=== PATIENT | male | born 1955 | race Caucasian/White ===

== ENCOUNTER 2017-01-18 07:30 | Outpatient (CLI) | payer MEDICARE ==
[~2017-01-18] VITALS: Ht 185.4 cm; Wt 109.1 kg
--- NOTE | ~2017-01-18 | HEMODYNAMI ---
PATIENT:ABRAHAN CARMONA MEDICAL RECORD: [id number] : 55 LOCATION:[facility] ADMISSION DATE: 01/18/17 Generatedon:01/18/201711:08 Patient name: ABRAHAN CARMONA Patient #: [id number] SSN: : 1955 Date of study: 01/18/2017 Page: Of Hemodynamic Procedure Report Patient Data Patient Demographics Procedure consent was obtained First Name: ABRAHAN Gender: Male Last Name: KRISTINE : 1955 Patient #: [id number] Age: 61 year(s) Race: Additional ID: [id number] Contact details Address: [facility] [address] State: [place] City: [place] Zip code: [address] Past Medical History Performed procedures and imaging results Date Procedure Procedure Results Comments Stress testing with Positive->Low risk SPECT MPI Allergies: No known allergies Admission Admission Data Admission Date: 01/18/2017 Admission Time: 7:30 Admit Source: Other Height (in.): 72 BSA: 2.3 (m2) Height (cm.): 182.88 BMI: 32.55 (kg/m2) Weight (lbs.): 240 Weight (kg.): 108.86 Lab Results Lab Result Date: 01/18/2017 Lab Result Time: 0:00 Biochemistry Name Units Result Min Max BUN mg/dl 6 -*(----)-- 7 18 Creatinine mg/dl 1 --(--*-)-- 0.6 1.3 CBC Name Units Result Min Max Hemoglobin g/dl 15.1 --(-*--)-- 13.5 17.5 Procedure Procedure Types Cath Procedure Diagnostic Procedure [facility] w/Coronaries PCI Procedure Coronary Stent Initial Miscellaneous Procedures Moderate Sedation up to 15 minutes Procedure Description Procedure Date Procedure Date: 01/18/2017 Procedure Start Time: 10:49 Procedure End Time: 11:07 Procedure Staff Name Function Ervin Rashid MD Performing Physician Pattie Beth RN Nurse Celestino Ingram RT Monitor Elia Gaspar RT Scrub Procedure Data Cath Procedure Fluoroscopy Diagnostic fluoroscopy Total fluoroscopy Time: 2.6 time: 2.6 min min Diagnostic fluoroscopy Total fluoroscopy dose: dose: 292.55 mGy 292.55 mGy Contrast Material Contrast Material Type Amount (ml) Isovue 300 84 Entry Location Entry Primary Successful Side Size Upsize Upsize Entry Closure Rodríguez ccessful Closure Location (Fr) 1 (Fr) 2 (Fr) Remarks Device Remarks Radial Right 6 Fr Mechanical artery Short Compression Estimated blood loss: 10 ml Diagnostic catheters Device Type Used For End Catheter Placement Terumo 5Fr Elkridge 110cm Procedure catheter Procedure Medications Medication Administration Route Dosage Oxygen NC 2 l/min Heparin Flush Bag added to field 2 bags (1000units/500ml NS) Lidocaine 2% added to field 20 Radial Cocktail added to field 1 syringe (Verapomil 2mg/Nitro 400mcg/Heparin 1500units) Versed I.V. 1 mg Fentanyl I.V. 50 mcg Versed I.V. 1 mg Fentanyl I.V. 50 mcg Radial Cocktail I.A. 1 syringe (Verapomil 2mg/Nitro 400mcg/Heparin 1500units) Versed I.V. 1 mg Fentanyl I.V. 50 mcg Heparin Bolus I.V. 4000 units Integrilin (Bolus I.V. 9.5 ml 2mg/ml) Versed I.V. 1 mg Fentanyl I.V. 50 mcg Fentanyl I.V. 50 mcg Plavix P.O. 600 mg Hemodynamics Rest BSA: 2.3 (m2) HGB: 15.1 (g/dl) O2 Consumption: Estimated: 267.76 (ml/min) O2 Con sumption indexed: Estimated:116.42 (ml/min/m) Heart Rate: 68 (bpm) Pressure Samples Time Site Value (mmHg) Purpose Heart Use Rate(bpm) 10:51 LV 97/51,15 Snapshot 88 10:51 LV 116/45,60 Snapshot 87 Snapshots Pre Cath Intra NCS Post Cath Vital Signs Time Heart Resp SPO2 NIBP (mmHg) Rhythm Pain Sedation Rate (ipm) (%) Status Level (bpm) 9:45:34 65 16 100 162/103(140) NSR 0 (11) 10(A) , No pain 9:50:04 67 16 100 154/95(133) NSR 0 (11) 10(A) , No pain 9:54:32 72 16 98 143/92(121) NSR 0 (11) 10(A) , No pain 9:58:54 72 18 97 147/96(114) NSR 0 (11) 10(A) , No pain 10:03:21 75 18 97 143/89(125) NSR 0 (11) 10(A) , No pain 10:07:45 76 18 96 143/93(116) NSR 0 (11) 10(A) , No pain 10:12:07 83 18 95 144/100(118) NSR 0 (11) 10(A) , No pain 10:16:31 77 16 95 144/94(108) NSR 0 (11) 10(A) , No pain 10:20:56 79 16 95 142/91(116) NSR 0 (11) 10(A) , No pain 10:25:22 83 16 97 145/89(121) NSR 0 (11) 10(A) , No pain 10:29:44 80 16 97 142/92(120) NSR 0 (11) 10(A) , No pain 10:34:04 80 16 96 144/91(115) NSR 0 (11) 10(A) , No pain 10:38:26 84 16 96 149/97(132) NSR 0 (11) 10(A) , No pain 10:42:55 82 16 96 140/90(108) NSR 0 (11) 10(A) , No pain 10:47:19 81 19 96 148/89(116) NSR 0 (11) 10(A) , No pain 10:51:49 85 17 96 135/79(96) NSR 0 (11) 10(A) , No pain 10:56:12 84 16 96 137/82(107) NSR 0 (11) 10(A) , No pain 11:00:38 80 18 95 141/83(105) NSR 0 (11) 10(A) , No pain 11:02:57 77 19 96 138/81(115) NSR 0 (11) 10(A) , No pain 11:07:21 74 10 97 156/89(115) NSR 0 (11) 10(A) , No pain Medications Time Medication Route Dose Verified Delivered Reason Note s Effectiveness by by 9:46:42 Oxygen NC 2 l/min Ervin Pattie Per physician Gay Beth RN 9:46:57 Heparin Flush added 2 bags Ervin Mueller used for Bag to Gay Rashid MD procedure (1000units/500ml field NS) 9:47:04 Lidocaine 2% added 20ml Ervin Ervin used for to vial Gay Rashid MD procedure field 9:47:12 Radial Cocktail added 1 Ervin Ervin used for (Verapomil to syringe Gay Rashid MD procedure 2mg/Nitro field 400mcg/Heparin 1500units) 10:48:02 Versed I.V. 1 mg Ervin Pattie for sedation Gay Beth RN 10:48:08 Fentanyl I.V. 50 mcg Ervin Pattie for sedation Gay Beth RN 10:50:06 Versed I.V. 1 mg Ervin Pattie for sedation Gay Beth RN 10:50:10 Fentanyl I.V. 50 mcg Ervin Pattie for sedation Gay Beth RN 10:50:56 Radial Cocktail I.A. 1 Ervin Ervin for (Verapomil syringe Gay Rashid MD vasodilation 2mg/Nitro 400mcg/Heparin 1500units) 10:52:08 Versed I.V. 1 mg Ervin Pattie for sedation Gay Beth RN 10:52:17 Fentanyl I.V. 50 mcg Ervin Pattie for sedation Gay Beth RN 10:54:28 Versed I.V. 1 mg Ervin Pattie for sedation Gay Beth RN 10:54:37 Fentanyl I.V. 50 mcg Ervin Pattie for sedation Gay Beth RN 10:56:10 Heparin Bolus I.V. 4000 Ervin Pattie for dose units Gay Beth RN anticoagulation verified with dr rashid 10:56:37 Fentanyl I.V. 50 mcg Ervin Pattie for sedation Gay Beth RN 10:58:47 Integrilin I.V. 9.5 ml Ervin Pattie for wast ed (Bolus 2mg/ml) Gay Beth RN antiplatelet 0.5 mL therapy 11:01:24 Plavix P.O. 600 mg Ervin Pattie for Gay Smithmore RN antiplatelet therapy Procedure Log Time Note 9:10:45 Celestino Juan Jose RT(R) (CV) sent for patient. Start room use. 9:35:03 Time tracking: Regular hours 9:35:07 Plan of Care:Hemodynamics will remain stable., Cardiac rhythm will remain stable., Comfort level will be maintained., Respiratory function will remain adequate., Patient/ family verbilizes understanding of procedure., Procedure tolerated without complication., Recovers from procedure without complications.. 9:35:13 Patient received from Pre/Post Procedure Room to CCL 3 Alert and oriented. Tansferred to table in Supine position. 9:35:15 Warm blankets applied, and ivette hugger turned on for patient comfort. 9:35:15 Correct patient and procedure confirmed by team. 9:35:16 Signed procedure consent form obtained from patient. 9:35:17 ECG and BP/O2 sat monitors applied to patient. 9:44:07 Vital chart was started 9:46:42 Oxygen 2 l/min NC was administered by Pattie Beth RN; Per physician; 9:46:57 Heparin Flush Bag (1000units/500ml NS) 2 bags added to field was administered by Ervin Rashid MD; used for procedure; 9:47:04 Lidocaine 2% 20ml vial added to field was administered by Ervin Rashid MD; used for procedure; 9:47:12 Radial Cocktail (Verapomil 2mg/Nitro 400mcg/Heparin 1500units) 1 syringe added to field was administered by Ervin Rashid MD; used for procedure; 9:50:56 Baseline sample Acquired. 9:51:01 Rhythm: sinus rhythm 9:51:03 Full Disclosure recording started 9:52:07 H&P Date Dictated: 01/18/2017 New H&P dictated by physician.. 9:52:09 Pre-procedure instructions explained to patient. 9:52:13 Pre-op teaching completed and patient verbalized understanding. 9:52:15 Family in waiting room. 9:52:18 Patient NPO since Midnight. 9:52:25 Patient allergic to No known allergies 9:52:28 Is the patient allergic to Iodine/contrast media? No. 9:52:31 Is patient on blood thinner?Yes 9:52:35 ACC The patient was administered the following blood thiners within the last 24 hours: ACCPlavix 9:52:37 Patient diabetic? No. 9:52:39 If diabetic: On Metformin? No 9:52:42 ----Pre-sedation anethsthesia assessment.---- 9:52:45 Previous problem with sedation/anesthesia? No ? 9:52:47 Snore? Yes 9:52:49 Sleep apnea? Yes 9:53:01 Deviated septum? No 9:53:06 Opens mouth fully? Yes 9:53:07 Sticks out tongue? Yes 9:53:22 Airway obstruction? No ? 9:53:25 Dentures? No ? 9:53:32 Modified Jed's test Ulnar > 7 seconds. 9:53:36 Patient pain scale 0/10 ?. 9:53:56 pillow placed under knees for back support 9:54:06 IV patent on arrival in left forearm with 0.9% NaCl at O. 9:55:22 Right Radial & Right Groin area was prepped with chlora-prep and draped in sterile fashion 9:55:31 Alarms reviewed by R. N. 9:55:42 Sharps counted by scrub and verified by R.N. 9:56:03 Use device set Radial Dx 9:56:13 Acist Syringe opened to sterile field. 9:56:14 Medline Cath Pack opened to sterile field. 9:56:14 Bag Decanter opened to sterile field. 9:56:15 Terumo 6Fr Slender Glidesheath opened to sterile field. 9:56:16 St Ortega 260cm J .035 wire opened to sterile field. 9:56:27 Acist Hand Control opened to sterile field. 9:56:28 Acist Manifold opened to sterile field. 9:56:28 Tegaderm 4 x 4 opened to sterile field. 9:56:29 MBrace Wrist Support opened to sterile field. 9:58:09 Lab Result : BUN 6 mg/dl 9:58:09 Lab Result : Creatinine 1 mg/dl 9:58:09 Lab Result : Hemoglobin 15.1 g/dl 9:59:24 DR. RASHID IN ROOM 2 10:07:55 Zero performed for pressure channel P1 10:09:06 Admit Source: Other 10:09:22 Patient Height : 182.88 cm 10:09:30 Patient Weight : 108.86 kg 10:47:14 Physician arrived 10:47:16 --------ALL STOP TIME OUT------ 10:47:17 Final Timeout: patient, procedure, and site verified with staff and physician. All members of the team are in agreement. 10:47:20 Right Radial & Right Groin site verified by team. 10:47:23 Physical assessment completed. ASA score P 2 - A patient with mild systemic disease as per Ervin Rashid MD. 10:47:28 Sedation plan: IV Moderate Sedation Versed, Fentanyl 10:48:02 Versed 1 mg I.V. was administered by Pattie Beth RN; for sedation; 10:48:08 Fentanyl 50 mcg I.V. was administered by Pattie Beth RN; for sedation; 10:48:20 Procedure started. 10:49:36 Local anesthetic to right radial artery with Lidocaine 2% by Ervin Rashid MD.INITIAL ACCESS ONLY 10:50:06 Versed 1 mg I.V. was administered by Pattie Beth RN; for sedation; 10:50:10 Fentanyl 50 mcg I.V. was administered by Pattie Beth RN; for sedation; 10:50:14 A 6 Fr Short sheath was inserted into the Right Radial artery 10:50:54 A [employer] 5Fr Elkridge 110cm catheter was advanced over the wire and used for Procedure. 10:50:56 Radial Cocktail (Verapomil 2mg/Nitro 400mcg/Heparin 1500units) 1 syringe I.A. was administered by Ervin Rashid MD; for vasodilation; 10:51:52 LV hemodynamics recorded. 10:51:55 LV gram done using SHEPPARD 10:52:03 LV Function : Normal 10:52:08 Versed 1 mg I.V. was administered by Pattie Beth RN; for sedation; 10:52:09 EF : 55 % 10:52:17 Fentanyl 50 mcg I.V. was administered by Pattie Beth RN; for sedation; 10:52:32 LCA angiography performed. 10:53:57 RCA angiography performed. 10:54:11 Catheter removed. 10:54:12 Proceeding to intervention. 10:54:28 Versed 1 mg I.V. was administered by Pattie Rice RN; for sedation; 10:54:35 Merit BasixCompak Inflation Kit opened to sterile field. 10:54:37 Fentanyl 50 mcg I.V. was administered by Pattie Beth RN; for sedation; 10:54:38 Barbour Whisper J 300cm 0.014 guide wire opened to sterile field. 10:55:06 Cordis 6FR XBLAD 3.5 guide catheter opened to sterile field. 10:56:06 6 Fr xblad 3.5 guide catheter was inserted over the wire 10:56:10 Heparin Bolus 4000 units I.V. was administered by Pattie Beth RN; for anticoagulation; dose verified with dr rashid 10:56:37 Fentanyl 50 mcg I.V. was administered by Pattie Beth RN; for sedation; 10:57:56 whisper wire advanced. 10:58:02 Wire advanced across lesion. 10:58:38 Inflation Number: 1 A Hashabletronic Integrity 3.0 X 12 stent was prepped and advanced across the 2nd Ob Sierra. The stent was deployed at 13 NOVA for 0:10 (min:sec). 10:58:47 Integrilin (Bolus 2mg/ml) 9.5 ml I.V. was administered by Pattie Beth RN; for antiplatelet therapy; wasted 0.5 mL 10:58:52 ACC Post-intervention SINCERE Flow is 3. 10:58:53 Stent catheter was removed intact over wire. 10:58:55 Wire removed. 10:58:55 Guide catheter removed. 11:01:24 Plavix 600 mg P.O. was administered by Pattie Beth RN; for antiplatelet therapy; 11:01:29 Sheath removed intact; hemostasis achieved with Mechanical Compression to the Right Radial artery. 11:01:34 Procedure ended.(Physican Out) 11:01:49 Diagnostic Cath Status : Elective 11:02:00 Procedure type changed to Cath procedure, Diagnostic procedure, LHC, LHC w/Coronaries, PCI procedure, Coronary Stent Initial, Miscellaneous Procedures, Moderate Sedation up to 15 minutes 11:02:11 Fluoroscopy time 02.60 minutes. 11:02:39 Flurop Dose total: 292.55 11:02:39 Fluoroscopy dose: 292.55 mGy 11:02:45 Contrast amount:Isovue 300 84ml. 11:02:48 Sharps counted by scrub and verified by R.N. 11:03:46 Medtronic traclet applied to right radial for hemostasis 13cc of air. 11:03:52 Insertion/operative site no bleeding no hematoma. 11:04:05 Post right radial artery:stable 11:04:12 Post-procedure physical assessment completed. ASA score P 2 - A patient with mild systemic disease as per Ervin Rashid MD. 11:04:16 Post procedure rhythm: sinus rhythm 11:06:24 Estimated blood loss: 10 ml 11:06:26 Post procedure instruction explained to patient.Patient verbalizes understanding. 11:06:27 Patient needs reinforcement of post procedure teaching. 11:06:28 Procedure and supply charges have been captured, reviewed, submitted and are correct. 11:07:49 Vital chart was stopped 11:07:50 See physician's report for complete and final results. 11:07:52 Report given to Pre/Post Procedure Room. 11:07:56 Patient transfered to Pre/Post Procedure Room with Stretcher. 11:07:58 Procedure ended. 11:07:58 Full Disclosure recording stopped 11:08:06 ACC-PCI Only Patient was given prescriptions, or instructed by Ervin Rashid MD to start/continue the following medications upon discharge: Aspirin, Plavix 11:08:08 End room use (Document Last) Intervention Summary Intervention Notes Time ActionType Lesion and Equipment Action# Pressure Duration Attributes Used 10:58:[address] Place stent 2nd Ob Sierra Medtronic 1 13 00:10 Integrity 3.0 X 12 stent Device Usage Item Name Manufacture Quantity Catalog Hospital Part Current Minimal Lot# / Number Charge Number Stock Stock Serial# Code Acist Acist 1 01118 582420 029297 294480 20 Syringe Medical Systems Inc Medline Cardinal 1 [id number] 379941 97528 197104 5 Cath Pack Health Bag Microtek 1 2001S 102845 00556 485953 5 Decanter Medical Inc. Terumo 6Fr Terumo 1 [id number] 571615 971439 976827 [address] St Ortega 1 603729 757996 870707 433747 30 260cm J .035 wire Acist Hand Acist 1 95039 711268 774410 017934 5 Control Medical Systems Inc Acist Acist 1 55458 045663 983328 224882 5 Manifold Medical Systems Inc Tegaderm 4 3M 1 1626W 168887 021592 060095 5 x 4 MBrace Advanced 1 140-0250-00 556501 12624 593880 5 Wrist Vascular Support Dynamics Terumo 5Fr Terumo 1 59-8174 366901 458714 923564 5 Elkridge 110cm catheter Merit Merit 1 QF1500 666505 178678 887409 15 BasixCompak Medical Inflation Kit Barbour Barbour 1 [id number] 471154 396846 496294 5 Whisper J Vascular 300cm 0.014 guide wire Cordis 6FR Cardinal 1 [id number] 208650 535340 251358 10 XBLAD 3.5 Health guide catheter Medtronic Medtronic 1 [id number] 058980 176231 370092 6 [id number] Integrity 3.0 X 12 stent Signature Audit [place] Stage Time Signature Unsigned Intra-Procedure 01/18/2017 Celestino Ingram 11:08:40 AM RT(R) (CV) Signatures Monitor : Celestino Ingram RT Signature : Date : Time : [place] [id number] [place] [address]
[~2017-01-18 07:30] MED LIST: AMBIEN5 MG PO; BENICAR40 MG PO; KLONOPIN0.5 MG PO; LEVAQUIN500 MG PO; MILK OF MAGNESI30 ML; MUCINEX600 MG; PERCOCET 10/3251 TA1 PO; SOMA350 MG PO
[2017-01-18] MEDS ORDERED: NEURONTIN600 MG PO (07:57)
[2017-01-18] MEDS ORDERED: LIPITOR20 MG PO (07:57)
[2017-01-18] MEDS ORDERED: ROXICODONE15 MG PO (07:57)
[2017-01-18] MEDS ORDERED: NORVASC5 MG PO (07:58)
[2017-01-18] MEDS ORDERED: OMEPRAZOLE40 MG PO (07:58)
[2017-01-18] MEDS ORDERED: HYDROCHLOROTHIA25 MG PO (07:58)
[2017-01-18] MEDS ORDERED: MAG-OX 400 MG400 MG PO (07:59)
[2017-01-18] MEDS ORDERED: DURAGESIC1 PATCH .1 TRANSDERM (08:00)
[2017-01-18 08:10] VITALS: BP 152/79; Ht 185.4 cm; Wt 109.1 kg
[2017-01-18 08:11] LABS: BASOPHILS 0.7 % (0-2); EOSINOPHILS 5.7 % (0-7); HEMATOCRIT 45.3 % (42.0-54.0); HEMOGLOBIN 15.1 g/dL (13.5-17.5); IMMATURE GRANULOCYTES 0.2 % (0-5); LYMPHOCYTES 35.1 % (15-50); MCHC 33.3 g/dL (31.0-37.0); MCV 99.1 fL (80.0-100.0); MEAN PLATELET VOLUME 9.9 fL (7.4-10.4); MONOCYTES 9.6 % (2-11); NEUTROPHILS 48.7 % (40-80); RBC 4.57 10x6/uL (4.20-6.10); RDW 13.7 % (11.5-14.5); WBC 4.6 10x3/uL (4.8-10.8)
[2017-01-18 08:12] LABS: PLATELET COUNT 181 10x3/uL (130-400)
[2017-01-18 08:25] LABS: CALC OSMOLALITY 276 mosm/kg (275-300); CALCIUM 8.4 mg/dL (8.5-10.1); CARBON DIOXIDE 30.6 mmol/L (21.0-32.0); CHLORIDE - SERUM 104 mmol/L (98-107); GLUCOSE 118 mg/dL (74-106); SODIUM 139 mmol/L (136-145); UREA NITROGEN 6 mg/dL (7-18); eGFR NON AFRICAN AMERICAN 81 mL/min (90-120)
--- NOTE | 2017-01-18 11:40 | NUR ---
RESTING QUIETLY. VSS. 2L NC, NO RESP DISTRESS NOTED. RIGHT WRIST TR BAND IN PLACE, NO BLEEDING OR HEMATOMA NOTED. NO C/O CHEST PAIN OR NAUSEA. INSTRUCTED PT NOT TO BEND OR FLEX RIGHT WRIST.
[2017-01-18] MEDS ORDERED: PLAVIX75 MG PO (11:53)
--- NOTE | 2017-01-18 12:10 | NUR ---
SANDWICH TRAY GIVEN. NO C/O NAUSEA OR CHEST PAIN. VSS. 2L NC, NO RESP DISTRESS NOTED. RIGHT WRIST TR BAND IN PLACE, NO BLEEDING OR HEMATOMA NOTED. AT BEDSIDE, CALL LIGHT WITHIN REACH.
--- NOTE | 2017-01-18 12:25 | NUR ---
2L NC, NO RESP DISTRESS NOTED. VSS. NO C/O CHEST PAIN OR NAUSEA. RIGHT WRIST TR BAND IN PLACE, NO BLEEDING OR HEMATOMA NOTED. WILL CONTINUE TO MONITOR.
--- NOTE | 2017-01-18 12:50 | NUR ---
RESTING IN BED WITH EYES CLOSED. 2L NC, NO RESP DISTRESS NOTED. VSS. NO C/O AT THIS TIME. RIGHT WRIST TR BAND IN PLACE, NO BLEEDING OR HEMATOMA NOTED. WILL CONTINUE TO MONITOR.
--- NOTE | 2017-01-18 13:20 | NUR ---
2L NC, NO RESP DISTRESS. RIGHT WRIST CDI, NO BLEEDING NOTED. NO C/O CHEST PAIN OR NAUSEA. CALL LIGHT WITHIN REACH.
--- NOTE | 2017-01-18 14:13 | NUR ---
2CC OF AIR REMOVED FROM TR BAND. NO BLEEDING NOTED.
--- NOTE | 2017-01-18 14:30 | NUR ---
3CC OF AIR REMOVED FROM TR BAND. NO BLEEDING NOTED.
--- NOTE | 2017-01-18 14:40 | NUR ---
2CC OF AIR REMOVED FROM TR BAND.
--- NOTE | 2017-01-18 14:52 | NUR ---
2CC OF AIR REMOVED FROM TR BAND. NO BLEEDING NOTED. LEFT FA PIV D/C'D WITH CATHTER INTACT, BAND AID TO SITE. UP TO BEDSIDE TO GET DRESSED.
--- NOTE | 2017-01-18 15:00 | NUR ---
REMAINING AIR REMOVED FROM TR BAND. DRESSING TO SITE. DISCHARGE INSTRUCTIONS GIVEN, VERBALIZED UNDERSTANDING.
--- NOTE | 2017-01-18 15:09 | NUR ---
TAKEN OUT VIA WHEELCHAIR BY CATH OUTCOMES ANALYST. LEFT FACILITY WITH AND ALL PERSONAL BELONGINGS.
--- NOTE | 2017-01-20 08:06 | HP ---
PATIENT: ABRAHAN CARMONA MEDICAL RECORD: [id number] ACCOUNT: [id number] LOCATION:[facility] : 55 ADMISSION DATE: 01/18/17 HISTORY AND PHYSICAL EXAMINATION DIAGNOSES: 1. Angina. 2. Abnormal nuclear stress test. 3. Hypertension. 4. Abdominal aortic aneurysm. HISTORY OF PRESENT ILLNESS: This is a gentleman, who has no previous cardiac history, but has a history of peripheral vascular disease, abdominal aortic aneurysm, who presents with chest pain. Nuclear stress testing was done. He shows a perfusion defect inferiorly, now brought for cardiac catheterization due to ongoing symptomatology. PHYSICAL EXAMINATION: GENERAL APPEARANCE: Well-nourished, well-developed, appears stated age. Level of distress, comfortable. PSYCHIATRIC: Mental status, alert, normal affect. Orientation, oriented to time, place and person. EYES: Lids and conjunctiva, noninjected. No discharge, no pallor. ENT: Lips, teeth, gums, normal dentition. Oropharynx, no cyanosis, no pallor. NECK: Carotid arteries, bilateral normal upstroke, no bruits, no thrills. JUGULAR VEINS: No jugular venous pressure or distention. CERVICAL LYMPH NODES: Nontender, nonenlarged. THYROID: Not enlarged. Nontender. No nodules. LUNGS: Respiratory effort, unlabored. CHEST: Normal curvature. No thoracic deformity. No chest wall tenderness. Percussion, resonant. Auscultation, clear. No wheezes, no rales, no rhonchi. CARDIOVASCULAR: Precordial exam, nondisplaced. No heaves or pericardial thrills. Rate and rhythm, regular. Heart sounds, normal S1, normal S2. No S3, no gallop, no rub. Systolic murmur, not heard. Diastolic murmur, not heard. EXTREMITIES: No cyanosis, no edema. Peripheral pulses, full and equal in all extremities, except as noted. No bruits appreciated. ABDOMEN: Soft, nondistended. Normal aorta. No bruit. Nontender. No masses. Liver, nontender, no hepatomegaly. Spleen, nontender, no splenomegaly. MUSCULOSKELETAL: No joint tenderness. No joint swelling. No erythema. NEUROLOGICAL: Normal gait, normal strength, normal tone. SKIN: Warm and dry. REVIEW OF SYSTEMS: The patient reports easy bruising but reports no swollen glands. The patient reports no fever, no night sweats, no significant weight gain, no significant weight loss. No significant exercise tolerance. The patient reports no dry eyes, no irritation, no vision change. Patient reports no difficulty hearing and no ear pain. Patient reports no frequent nose bleeds or nose and sinus problems. Patient reports on arm pain on exertion. No shortness of breath while lying down. No history of heart murmur. Patient reports no cough, no wheezing or coughing up blood. Patient reports no abdominal pain, no vomiting. Normal appetite. No diarrhea and not vomiting blood. No nausea and no constipation. Patient reports no incontinence. No difficulty urinating. No hematuria. No increased frequency. Patient reports no muscle aches. No weakness, no arthralgias, no back pain. No swelling of the extremities. Patient reports no abnormal mole, no jaundice, no rashes. Reports HISTORY AND PHYSICAL [id number] ABRAHAN CARMONA no loss of consciousness. No weakness and no numbness. No seizures, dizziness, or headaches. The patient reports no depression, no sleep disturbance, feeling safe in a relationship and no alcohol abuse. Patient reports on fatigue. Reports no runny nose or sinus pressure. No itching, no hives, and no frequent sneezing. OVERALL IMPRESSION: Anginal symptomatology with abnormal perfusion stress test. We will proceed with coronary angiography. Further care depends upon findings of the angiography. TRANSINT:[id number] Voice Confirmation ID: [id number] DOCUMENT ID: [id number] JESSICA DOOLEY MD at 0806 CC: [id number] DICTATION DATE: 01/18/17805 SPA CONSULTANT: 01/18/17 0820 DEP CLI 01/18/17 [place] [id number]
--- NOTE | 2017-01-20 08:06 | OP ---
PATIENT NAME: ABRAHAN CARMONA MEDICAL RECORD: [id number] :55 LOCATION:[facility] ADMISSION DATE: SURGEON: JESSICA DOOLEY MD DATE OF OPERATION: 01/18/2017 PROCEDURES: 1. PTCA stent left circumflex. 2. Left heart catheterization. 3. Selective coronary angiography. 4. Left ventriculogram. INDICATION: Angina and coronary artery disease. PROCEDURE: After informed consent was obtained and after detailed explanation of risks, benefits as well as alternative therapies, the patient elected to proceed with angiogram and angioplasty. The right radial area was prepped and draped in normal sterile fashion. Right radial artery was cannulated via modified Seldinger technique with placement of 6-Kosovan sheath. All catheters exchanged through this sheath. FINDINGS: Left ventriculogram was performed in standard 30-degree SHEPPARD view, reveals good cardiac wall motion throughout all segments. Overall ejection fraction estimated at 60%. SELECTIVE CORONARY ANGIOGRAPHY: 1. Left main is with no significant angiographic disease. 2. Left anterior descending has moderate irregularities, no flow-limiting stenosis. 3. The left circumflex is large, dominant. The terminal obtuse marginal, which correlates with a nuclear perfusion defect inferiorly has a 70% stenosis. 4. Right coronary is small and nondominant. PTCA STENT OF SECOND OBTUSE MARGINAL: The stent used was a 3.0 x 12 mm Integrity. Result was 0% residual stenosis. OVERALL IMPRESSION: Successful percutaneous transluminal coronary angioplasty stent of the left circumflex going from 70% initial stenosis to 0% residual. TRANSINT:[id number] Voice Confirmation ID: [id number] DOCUMENT ID: [id number] JESSICA DOOLEY MD at 0806 CC: [id number] DICTATION DATE: 01/18/17 1102 TOBACCO FLAVORER: 01/18/17 1228 DEP CLI 01/18/17 [place] [id number]
== END 2017-01-18 15:09 | disposition home or self-care (01) ==
LOC: D.CATH 07:30
PROVIDERS: Internal Medicine Interventional Cardiology
DX: I20.9 Angina pectoris, unspecified (principal); I10 Essential (primary) hypertension; I71.4 Abdominal aortic aneurysm, without rupture; R94.30 Abnormal result of cardiovascular function study, unspecified

== ENCOUNTER → 2017-07-08 13:27 | Outpatient (CLI) | payer MEDICARE ==
[2017-01-18 08:10] VITALS: BMI 31.7
[~2017-07-08 13:27] MED LIST changes: +DURAGESIC1 PATCH .1 TRANSDERM; +HYDROCHLOROTHIA25 MG PO; +LIPITOR20 MG PO; +MAG-OX 400 MG400 MG PO; +NEURONTIN600 MG PO; +NORVASC5 MG PO; +OMEPRAZOLE40 MG PO; +PLAVIX75 MG PO; +ROXICODONE15 MG PO
[2017-07-08 14:06] LABS: HEMOGLOBIN A1C 5.8 % (4.8-6.0)
== END | disposition home or self-care (01) ==
LOC: D.LAB 13:27
PROVIDERS: Family Medicine
DX: E11.9 Type 2 diabetes mellitus without complications (principal)

== ENCOUNTER → 2017-12-24 10:05 | Outpatient (CLI) | payer MEDICARE ==
[2017-01-18 08:10] VITALS: BMI 31.7
[2017-12-24 10:40] LABS: BASOPHILS 0.5 % (0-2); EOSINOPHILS 5.1 % (0-7); HEMATOCRIT 45.5 % (42.0-54.0); HEMOGLOBIN 16.1 g/dL (13.5-17.5); IMMATURE GRANULOCYTES 0.2 % (0-5); LYMPHOCYTES 37.5 % (15-50); MCH 35.4 pg (26.0-34.0); MCHC 35.4 g/dL (31.0-37.0); MEAN PLATELET VOLUME 10.1 fL (7.4-10.4); MONOCYTES 7.3 % (2-11); NEUTROPHILS 49.4 % (40-80); RBC 4.55 10x6/uL (4.20-6.10); RDW 12.9 % (11.5-14.5)
[2017-12-24 10:43] LABS: PLATELET COUNT 141 10x3/uL (130-400)
[2017-12-24 11:14] LABS: ALBUMIN 4.2 g/dL (3.4-5.0); ANION GAP 9.9 mmol/L (8-16); BILIRUBIN - TOTAL 0.71 mg/dL (0.2-1.3); CALCIUM 8.5 mg/dL (8.5-10.1); CARBON DIOXIDE 31.1 mmol/L (21.0-32.0); CHOL - HDL RATIO 3.1 ratio (2.3-4.9); CREATININE - SERUM 1.2 mg/dL (0.6-1.3); LDL-HDL RATIO 1.4 ratio (1.5-3.5); PROTEIN - SERUM 7.1 g/dL (6.4-8.2); THYROID STIMULATING HORMONE 0.52 uIU/mL (0.36-3.74)
== END | disposition home or self-care (01) ==
LOC: D.LAB 12-20 09:00
PROVIDERS: Family Medicine
DX: I10 Essential (primary) hypertension (principal); R73.9 Hyperglycemia, unspecified; E78.5 Hyperlipidemia, unspecified; E29.1 Testicular hypofunction

== ENCOUNTER 2018-03-01 10:50 | Emergency (ER) | payer BC, MEDICARE ==
[~2018-03-01] VITALS: Ht 185.4 cm; Wt 91.8 kg
[2018-03-01 10:52] VITALS: Ht 185.4 cm; Wt 91.8 kg
[2018-03-01 13:07] VITALS: BP 158/91
== END 2018-03-01 13:04 | disposition home or self-care (01) ==
LOC: D.ER 10:50
DX: M54.2 Cervicalgia (principal); V43.52XA Car driver injured in collision with other type car in traffic accident, initial encounter; Y93.89 Activity, other specified; Y92.410 Unspecified street and highway as the place of occurrence of the external cause; I10 Essential (primary) hypertension; M54.9 Dorsalgia, unspecified; F17.200 Nicotine dependence, unspecified, uncomplicated

== ENCOUNTER → 2018-07-15 07:34 | Outpatient (CLI) | payer BC, MEDICARE ==
[2018-03-01 10:52] VITALS: BMI 26.7
[2018-07-15 08:04] LABS: BASOPHILS 0.9 % (0-2); EOSINOPHILS 4.8 % (0-7); HEMATOCRIT 46.8 % (42.0-54.0); HEMOGLOBIN 16.5 g/dL (13.5-17.5); IMMATURE GRANULOCYTES 0.2 % (0-5); LYMPHOCYTES 35.6 % (15-50); MCH 35.7 pg (26.0-34.0); MCHC 35.3 g/dL (31.0-37.0); MCV 101.3 fL (80.0-100.0); MEAN PLATELET VOLUME 9.6 fL (7.4-10.4); MONOCYTES 9.5 % (2-11); PLATELET COUNT 152 10x3/uL (130-400); RBC 4.62 10x6/uL (4.20-6.10); RDW 12.8 % (11.5-14.5); WBC 4.3 10x3/uL (4.8-10.8)
[2018-07-15 08:34] LABS: ALBUMIN 4.2 g/dL (3.4-5.0); ALKALINE PHOSPHATASE 50 U/L (46-116); ALT (SGPT) 19 U/L (10-68); BILIRUBIN - TOTAL 0.44 mg/dL (0.2-1.3); CALC OSMOLALITY 271 mosm/kg (275-300); CALCIUM 8.6 mg/dL (8.5-10.1); CARBON DIOXIDE 31.3 mmol/L (21.0-32.0); CHLORIDE - SERUM 99 mmol/L (98-107); CHOL - HDL RATIO 2.7 ratio (2.3-4.9); CHOLESTEROL, TOTAL 175 mg/dL (0-200); GLUCOSE 110 mg/dL (74-106); HDL CHOLESTEROL 66 mg/dL (32-96); LDL CHOLESTEROL 85 mg/dL (0-100); LDL-HDL RATIO 1.3 ratio (1.5-3.5); POTASSIUM - SERUM 4.3 mmol/L (3.5-5.1); SODIUM 136 mmol/L (136-145); THYROID STIMULATING HORMONE 1.08 uIU/mL (0.36-3.74); TRIGLYCERIDE 121 mg/dL (30-200); UREA NITROGEN 9 mg/dL (7-18); eGFR NON AFRICAN AMERICAN 80 mL/min (90-120)
== END | disposition home or self-care (01) ==
LOC: D.LAB 07:34
PROVIDERS: Family Medicine
DX: I10 Essential (primary) hypertension (principal); R73.9 Hyperglycemia, unspecified; I25.10 Atherosclerotic heart disease of native coronary artery without angina pectoris; Z12.5 Encounter for screening for malignant neoplasm of prostate

== ENCOUNTER → 2018-10-26 13:04 | Outpatient (CLI) | payer BC, MEDICARE ==
[2018-03-01 10:52] VITALS: BMI 26.7
[2018-10-26 13:42] LABS: ANION GAP 9.5 mmol/L (8-16); CALCIUM 8.4 mg/dL (8.5-10.1); CARBON DIOXIDE 29.9 mmol/L (21.0-32.0); CREATININE - SERUM 1.1 mg/dL (0.6-1.3); POTASSIUM - SERUM 4.4 mmol/L (3.5-5.1)
[2018-10-26 14:53] LABS: APPEARANCE CLEAR (CLEAR); COLOR ORANGE (YELLOW)
[2018-10-26 14:55] LABS: RED CELLS - URINE OCC /hpf (0-5); WHITE CELLS - URINE OCC /hpf (0-5)
== END | disposition home or self-care (01) ==
LOC: D.LAB 13:04
PROVIDERS: Family Medicine
DX: N39.0 Urinary tract infection, site not specified (principal); R25.2 Cramp and spasm

== ENCOUNTER → 2019-06-12 09:49 | Outpatient (CLI) | payer BC, MEDICARE ==
[2018-03-01 10:52] VITALS: BMI 26.7
--- NOTE | 2019-06-20 13:38 | EC ---
PATIENT:ABRAHAN CARMONA DATE OF SERVICE: 06/12/19 SEX: M MEDICAL RECORD: [id number] DATE OF : 55 LOCATION:[facility] AGE OF PATIENT: 63 ADMISSION DATE: 06/12/19 REFERRING PHYSICIAN: INTERPRETING PHYSICIAN: JESSICA RASHID MD ECHOCARDIOGRAM REPORT ECHO CHARGES 4 ECHO COMPLETE Date: 06/12/19 CLINICAL DIAGNOSIS: MURMUR H/O HTN/CAD ECHOCARDIOGRAPHIC MEASUREMENTS (adult normal given) AC root (d.<3.7cm) 2.7 cm LV Septum d (<1.2 cm> 1.1 cm Valve Excursion 1.8 cm LV Septum (systole) 1.7 cm Left Atria (s.<4.0cm> 5.6 cm LVPW d(<1.2cm) 1.2 cm RV (d.<2.3cm) 2.6 cm LVPW (sytole) 2.1 cm LV diastole(<5.6CM) 5.9 cm MV E-F(>70mm/sec) cm LV systole 3.6 cm LVOT Diameter 1.9 cm MV exc.(>10mm) cm Est.ejection fraction (50-75%) % DOPPLER: LVIT cm/sec A 109 cm/sec E 126 cm/sec LA cm/sec RVSP 36.0 mmHg LVOT 117 cm/sec AOP1/2T m/s Asc. Ao 165 cm/sec RVOT 65.0 cm/sec RA cm/sec PA 86.0 cm/sec AV Gradient Peak 11.0 mmHg AV Mean 6.4 mmHg AV Area 1.8 cm MV Gradient Peak 9.1 mmHg MV Mean 3.4 mmHg MV Area cm COMMENTS: OP - HC Chemist Physical: 1 WARREN LAURA Tow Truck Operator: 1 Dr. Rashid TAPE# PACS Pericardial Effusion N DATE OF SERVICE: PROCEDURE: Echocardiogram. FINDINGS: 1. Left ventricular chamber size is within normal limits. Left ventricular systolic function is preserved at 55% to 60%. 2. Left atrium is enlarged at 5.6 cm. Right atrium and right ventricular chamber sizes are as well [id number] dilated. 3. Valvular structures have normal structure and motion. ECHOCARDIOGRAM REPORT [id number] ABRAHAN CARMONA 4. Doppler interrogation reveals moderate mitral regurgitation, mild tricuspid regurgitation, no other valvular insufficiency or stenosis. Pulmonary systolic pressure estimated 36 mmHg. 5. No evidence of pericardial effusion or left ventricular thrombus. TRANSINT:[id number] Voice Confirmation ID: [id number] DOCUMENT ID: [id number] JESSICA RASHID MD at 1338 CC: [id number] DICTATION DATE: 06/13/19926 FOOD CONSULTANT: 06/13/19 1049 DEP CLI 06/12/19 [place] [id number] [place] [id number]
== END | disposition home or self-care (01) ==
LOC: D.HCCARDIO 09:30 → D.HCCECHO 09:30
PROVIDERS: ATTEND Internal Medicine Interventional Cardiology
DX: I10 Essential (primary) hypertension (principal)

== ENCOUNTER → 2019-08-10 12:57 | Outpatient (CLI) | payer BC, MEDICARE ==
[2018-03-01 10:52] VITALS: BMI 26.7
[2019-08-10 13:32] LABS: HEMOGLOBIN 17.2 g/dL (13.5-17.5); LYMPHOCYTES 25.4 % (15-50); MCH 36.4 pg (26.0-34.0); MCHC 35.1 g/dL (31.0-37.0); MCV 103.6 fL (80.0-100.0); MEAN PLATELET VOLUME 9.7 fL (7.4-10.4); NEUTROPHILS 64.2 % (40-80); PLATELET COUNT 145 10x3/uL (130-400); RBC 4.73 10x6/uL (4.20-6.10); RDW 13.1 % (11.5-14.5); WBC 4.7 10x3/uL (4.8-10.8)
[2019-08-10 13:50] LABS: ALKALINE PHOSPHATASE 48 U/L (46-116); ALT (SGPT) 19 U/L (10-68); BILIRUBIN - TOTAL 0.52 mg/dL (0.2-1.3); CALCIUM 8.2 mg/dL (8.5-10.1); CARBON DIOXIDE 31.9 mmol/L (21.0-32.0); CHLORIDE - SERUM 99 mmol/L (98-107); CHOL - HDL RATIO 2.3 ratio (2.3-4.9); CHOLESTEROL, TOTAL 141 mg/dL (0-200); CREATININE - SERUM 0.9 mg/dL (0.6-1.3); HDL CHOLESTEROL 61 mg/dL (32-96); LDL CHOLESTEROL 55 mg/dL (0-100); LDL-HDL RATIO 0.9 ratio (1.5-3.5); POTASSIUM - SERUM 4.5 mmol/L (3.5-5.1); PROTEIN - SERUM 6.9 g/dL (6.4-8.2); SODIUM 135 mmol/L (136-145); THYROID STIMULATING HORMONE 0.72 uIU/mL (0.36-3.74); TRIGLYCERIDE 128 mg/dL (30-200); UREA NITROGEN 5 mg/dL (7-18); eGFR NON AFRICAN AMERICAN 90 mL/min (90-120)
[2019-08-10 13:52] LABS: CALC OSMOLALITY 265 mosm/kg (275-300); GLUCOSE 87 mg/dL (74-106); SCREENING PSA (YEARLY) 1.24 ng/mL (0.00-4.00)
== END | disposition home or self-care (01) ==
LOC: D.LAB 12:57
PROVIDERS: ATTEND Family Medicine
DX: I10 Essential (primary) hypertension (principal); E29.1 Testicular hypofunction; Z12.5 Encounter for screening for malignant neoplasm of prostate; R73.9 Hyperglycemia, unspecified